=== PATIENT | male | born 1970 | race Caucasian/White ===

== ENCOUNTER 2017-08-03 13:13 | Inpatient (IN) ==
[2017-08-03] MEDS ORDERED: Levofloxacin 500 MG/100 ML 500 MG/100 ML BAG IVPB ONE (13:35)
[2017-08-03] MEDS ORDERED: Aminoglycoside Consult 1 EACH MC ONE (14:59)
[2017-08-03] MEDS ORDERED: Naloxone 0.4 MG/ML INJ IVP PRN (15:03)
--- NOTE | 2017-08-03 15:10 | Internal Med History&Physical ---
Date of Encounter: 08/03/17 Time of Encounter: 15:08 Internal Medicine - H&P: HPI Chief complaint: SOB/Cough, LE swelling History of present illness: Mr. Eitenne is a 46 year old male who was previously healthy who presents with 3 day history of swelling in the legs associated with cough, shortness of breath on exertion. Found to have multifocal pneumonia with associated pleural effusion. Also noted bilateral lower extremity edema +1. He has been previously healthy and does not really see a physician. He developed swelling on the lower extremity for the last 3 days. Of note he had shortness of breath and cough syndrome and visited urgent care on to July and was given antibiotics such as Z-Pedro and subsequently Cipro. His shortness of breath is progressive to a few 100 yards. Feels winded. Associated with cough with scant sputum. He reports that all these symptoms started since several weeks now. Denies overt fevers or chills EKG personally reviewed with rate 138, sinus tachycardia, PVCs CT/CT angio chest IMPRESSION: 1. No CT evidence of a pulmonary embolism. 2. Bilateral pleural effusions, right greater than left, with mild interstitial pulmonary edema. 3. Multifocal, consolidative, nodular, ground-glass opacities throughout both lungs most likely reflect multifocal pneumonia. 4. Subcarinal and bilateral hilar lymphadenopathy, most likely benign and reactive in etiology given the patient's underlying lung findings. RECOMMENDATIONS: Given the patient's multifocal airspace opacities and lymphadenopathy, suggest appropriate clinical treatment and short-term chest CT follow-up in 6-8 weeks, to ensure resolution of both the multifocal lung opacities and lymphadenopathy, as underlying malignancy cannot be entirely excluded. Past Med Surg Social Fam HX - Past Medical History Medical history: CHF, hypertension, kidney stones Psychiatric history: no psych history - Past Surgical History Surgical History: no surgical history - Social History Smoking Status: Never smoker Alcohol use: occasionally Drug use: none Internal Medicine - H&P: Meds Furosemide [Lasix] 40 mg PO DAILY #5 tablet 08/03/17 [Rx] levoFLOXacin [Levaquin] 500 mg PO DAILY #7 tablet 08/03/17 [Rx] 3 Allergy/AdvReac Type Severity Reaction Status Date / Time No Known Allergies Allergy Verified 08/03/17 08:44 All Systems PM: A 10-system review of systems was performed and is negative for pertinent findings except as documented above in the HPI. Review of systems: ROS 14 point review of systems reviewed as best as possible given presentation. Pertinent positive or negative as per HPI or otherwise reviewed as negative - Constitutional Vitals: Temp Pulse Resp BP Pulse Ox 98.4 F 118 18 136/108 94 08/03/17 13:53 08/03/17 14:54 08/03/17 14:54 08/03/17 14:54 08/03/17 14:54 Exam: General - AAO x 3 Psych - Appropriate affect/speech. No agitation Eyes - MARIANELA. Eye lids intact. No scleral icterus Neuro - No gross peripheral or central neuro deficits on inspection Heart - Sinus. RRR. S1 and S2 present. No added HS/murmurs appreciated. No elevated JVD appreciated. Lung - Adequate air entry b/l, bibasal dullness associated with bibasal crackles. No wheezes appreciated GI - Soft, non-tender. No hepatosplenomegaly/ascites. BS+ - No CVA/suprapubic tenderness or palpable bladder distension Skin - Intact. No rash/petechiae/ecchymosis. S1 bilateral lower extremity edema MSK - Joints with normal ROM. No joint swellings - Assessment and plan (1) Multifocal pneumonia Current Visit: No Status: Acute Assessment and plan: IV cefepime. IV vanco, pharmacy to dose, monitor level send serologies could be post-viral ? Denies IVDU or prior immunocompromised state (2) Pleural effusion Current Visit: Yes Status: Acute Assessment and plan: likely related to PNA IV lasix trial treat infection (3) Leg swelling Current Visit: Yes Status: Acute Assessment and plan: check TTE card consulted by ED could be post viral associated ?? Await TTE Lasix for now IV - Time Spent With Patient Total time spent is greater than 50% in coordination of care (as documented) at patient's floor/unit and/or counseling patient:
--- NOTE | 2017-08-03 15:47 | Emergency Department Note ---
Disposition Clinical Impression: Multifocal pneumonia, Dilated cardiomyopathy Disposition: Admitted As Inpatient Condition: Fair Time of Disposition: 15:47 General Adult HPI - General Chief complaint: ED Shortness of Breath/Dyspnea Stated complaint: Left AMA Earlier,Pneumonia, was being admitted Time Seen by Provider: 08/03/17 13:22 Source: patient Limitations: no limitations Nursing Notes Reviewed: Yes Vital Signs Reviewed: Yes - History of Present Illness HPI Narrative: Patient returned from leaving AMA this morning. Please see my note for full history from this morning. Patient has not yet filled antibiotic. Pain Scale: 0 - Related Data Previous Rx's Medication Instructions Recorded Furosemide [Lasix] 40 mg PO DAILY #5 tablet 08/03/17 levoFLOXacin [Levaquin] 500 mg PO DAILY #7 tablet 08/03/17 Allergies Allergy/AdvReac Type Severity Reaction Status Date / Time No Known Allergies Allergy Verified 08/03/17 08:44 All systems ED: reviewed and negative except as stated. Constitutional: Denies: fever Cardiovascular: Reports: chest pain Respiratory: Reports: dyspnea Gastrointestinal: Denies: abdominal pain Past Medical History - Past Medical History Attestation: Yes The following information was validated with the patient. Source: patient Medical history: Reports: CHF, hypertension, kidney stones Surgical history: Reports: no surgical history Psychiatric history: Reports: no psych history - Social History Smoking Status: Never smoker Alcohol use: Reports: occasionally Drug use: Reports: none Physical Exam - General Limitations: no limitations General appearance: alert, in no apparent distress - Head Head exam: atraumatic - Eye Eye exam: Present: normal appearance - Chest Chest inspection: Present: normal inspection - Respiratory Respiratory exam: Present: normal lung sounds bilaterally - Cardiovascular Cardiovascular exam: Present: regular rate, normal rhythm - Neurological Exam Neurological exam: Present: alert, oriented X3 - Psychiatric Psychiatric exam: Present: normal affect - Skin Skin exam: Present: warm, dry Course Course Narrative: Patient returns for admission. No further symptoms. Admitted to medicine. - Consultations Consultation #1: Celina accepts Time: 15:46 Vital Signs Pulse Rate 125 08/03/17 13:16 Respiratory Rate 20 08/03/17 13:16 Blood Pressure 148/101 08/03/17 13:16 Temperature 98.4 F 08/03/17 13:53 Pulse Rate 118 08/03/17 14:54 Respiratory Rate 18 08/03/17 14:54 Blood Pressure 136/108 08/03/17 14:54 O2 Sat by Pulse Oximetry 94 08/03/17 14:54 Oxygen Delivery Oxygen Delivery Room Air Medical Decision Making - Lab Data Lab results reviewed: Yes I reviewed the patient's lab results. Lab results narrative: From this morning
[2017-08-03] MEDS ORDERED: Ipratropium/Albuterol Neb 3 ML IH SCH (17:00)
[2017-08-03] MEDS: Cefepime HCl 2,000 MG in Water for inj. (sterile) 20 ML 20 ML IVP SCH (18:19)
[2017-08-04] MEDS: Levalbuterol Neb 1.25 MG/3 ML IH SCH ×4 (03:21→21:49)
[2017-08-04 05:58] LABS: Basophils # 0.1 K/mcL (0.0-0.2); Basophils % 0.8 %; Eosinophils # 0.1 K/mcL (0.0-0.6); Hematocrit 47.1 % (37.5-50.1); Hemoglobin 15.7 g/dL (12.9-16.9); Immature Granulocytes % 0.8 % (0-4); Lymphocytes # 0.9 K/mcL (0.6-4.6); Lymphocytes % 11.6 %; Mean Corpuscular HGB Conc 33.3 g/dL (31.6-35.5); Mean Corpuscular Hemoglobin 32.9 pg (28.0-33.3); Mean Corpuscular Volume 98.7 fL (83.0-100.0); Mean Platelet Volume 10.8 fL (9.4-12.4); Monocytes # 0.6 K/mcL (0.0-1.3); Monocytes % 7.8 %; Neutrophils # 6.3 K/mcL (1.6-8.9); Platelet Count 198 K/mcL (140-400); Red Blood Count 4.77 M/mcL (4.19-5.50); Red Cell Distribution Width 13.4 % (11.5-14.5)
[2017-08-04 06:07] LABS: BUN/Creatinine Ratio 13 (6-26); Blood Urea Nitrogen 12 mg/dL (6-20); Calcium 9.2 mg/dL (8.6-10.3); Carbon Dioxide 23 mEq/L (23-29); Chloride 99 mEq/L (98-107); Glucose 117 mg/dL (70-105); Osmolality,Calculated 275 (280-300); Potassium 3.8 mEq/L (3.5-5.1); Sodium 132 mEq/L (136-145); eGFR For African Americans > 60 (> 60); eGFR For Non-African Americans > 60 (> 60)
[2017-08-04] MEDS: Cefepime HCl 2,000 MG in Water for inj. (sterile) 20 ML 20 ML IVP SCH ×2 (06:57→17:05)
[2017-08-04] MEDS: *HR* Enoxaparin 40 MG/0.4 ML SYRINGE SQ SCH (06:57)
[2017-08-04] MEDS ORDERED: Furosemide 40 MG/4 ML VIAL IVP SCH (09:00)
--- NOTE | 2017-08-04 09:14 | Cardiology Consult Note ---
Date of Encounter: 08/04/17 Time of Encounter: 09:14 Assessment and Plan (1) Leg swelling Current Visit: Yes Status: Acute Bilateral 2+ pitting edema in lower extremities. Concern for CHF at this time due to elevated BNP. Patient has no known cardiac history. Echo pending. Discussion w patient/family: The assessment and plan as outlined above was discussed with the patient and/or family members who expressed understanding and agreement. All questions were answered. Thank you for involving us in the care of your patient. Please call with any questions. History of Present Illness Consult date: 08/04/17 Consult reason: Fluid Overload History of present illness: Mr. Etienne is a 46 year old male with history of hypertension admitted to the hospital for multifocal pneumonia. Patient also found to have fluid overload and bilateral lower extremity edema. Patient states he has never had edema before. Denies chest pain, pressure, or palpitations. Denies any cardiac history. Patient has no complaints or concerns at this time. Past Med Surg Social Fam HX - Past Medical History Attestation: Yes The following information was validated with the patient. Medical history: CHF, hypertension, kidney stones Psychiatric history: no psych history - Past Surgical History Surgical History: no surgical history - Social History Smoking Status: Never smoker Alcohol use: occasionally Drug use: none - Family History Mother Hx Family Cardiac Disorders: Yes (Hypertension) Father Hx Family Cardiac Disorders: Yes (Hypertension) Medications and Allergies 3 Allergy/AdvReac Type Severity Reaction Status Date / Time No Known Allergies Allergy Verified 08/03/17 08:44 All Systems Review: The remainder of the systems were reviewed and are negative - Constitutional Constitutional: no frequent falls, no headache(s) - EENT Eyes: no blurred vision, no loss of vision - Cardiovascular Cardiovascular: as per HPI - Respiratory Respiratory: cough, no hemoptysis - Gastrointestinal Gastrointestinal: no abdominal pain, no diarrhea, no nausea - Musculoskeletal Musculoskeletal: no abnormal gait, no muscle weakness - Integumentary Integumentary: no rash - Neurological Neurological: no abnormal speech, no focal weakness Physical Examination Vital Signs, Last 4 Hours Temp Pulse Resp BP Pulse Ox 08/04/17 07:13 97.5 F L 123 16 135/101 91 General: Conversant, No Apparent Distress HEENT: Atraumatic, Normocephaly, Mucus Membranes Moist Neck: No JVD, Normal carotid pulses Cardiac: Reg Rate and Rhythm, Normal S1 and S2, No Murmur Lungs: Other (Coarse breath sounds throughout) Neuro: Alert and responsive, No focal deficits noted Abdomen: Soft, Non-Tender Skin: No rashes noted on visualized skin Musculoskeletal: No Chest Wall Tenderness Extremities: Normal Pulses, Other (2+ pitting edema bilateral lower extremities) Results 08/04/17 05:34 08/04/17 05:34 Lab Results 08/04/17 08/04/17 08/04/17 05:34 05:34 05:34 WBC 8.0 Hgb 15.7 Hct 47.1 Plt Count 198 Sodium 132 L Potassium 3.8 Chloride 99 Carbon Dioxide 23 BUN 12 Creatinine 0.93 Glucose 117 H Calcium 9.2 B-Natriuretic Peptide 3443 H Consult Discharge Plan - Plan Referrals: Mat Mueller DO [Primary Care Provider] -
--- NOTE | 2017-08-04 13:39 | Internal Med Progress Note ---
Date of Encounter: 08/04/17 Time of Encounter: 11:00 - Assessment and plan (1) Multifocal pneumonia Current Visit: Yes Status: Acute Assessment and plan: Mostly bacterial Cont empirical abx Cefepime + Levaquin no need of Vanco.. low risk for MRSA will check sputum cx, Legionella, strep PNA and Resp viral panel (2) Pleural effusion Current Visit: Yes Status: Acute Assessment and plan: likely related to PNA Also concerned for CHF will f/u on 2 D Echo Held Lasix for now since pt became more sinus tachy / intra vascular volume depletion (3) Leg swelling Current Visit: Yes Status: Acute Assessment and plan: check TTE Improving (4) CHF exacerbation Current Visit: Yes Status: Acute Assessment and plan: Possible systolic CHF exacerbation Severely elevated BNP and significnat pleural effusion as well as b/l LE edema put him on high risk for CHF will f/u on 2 D Echo started on Metoprolol Held Lasix for now Qualifiers: Heart failure type: unspecified Qualified Code(s): I50.9 - Heart failure, unspecified (5) Sinus tachycardia Current Visit: Yes Status: Acute Assessment and plan: Mostly due to Pneumonia cont empirical abx held IV hydration for now due to CHF Switched to Xopenox neb - Time Spent With Patient Total time spent is greater than 50% in coordination of care (as documented) at patient's floor/unit and/or counseling patient: - Subjective Interval history: Mr. Etienne is a 46 year old male who was previously healthy who presents with 3 day history of swelling in the legs associated with cough, shortness of breath on exertion. Found to have multifocal pneumonia with associated pleural effusion. Also noted bilateral lower extremity edema +1. Pt was admitted here and started him on empirical abx Cefepime and Levaquin. He was also started on IV lasix. Pt stated his leg swelling better today. Denied any CP. Does c/o mild to moderate SOB / VELEZ. Still has some cough with expectoration. - Constitutional Vitals: Temp Pulse Resp BP Pulse Ox 98.4 F 127 16 139/92 94 08/04/17 10:47 08/04/17 10:47 08/04/17 10:47 08/04/17 10:47 08/04/17 10:47 General appearance: Present: A&O X 3, no acute distress, answers questions appropriately - Head Head exam: Present: atraumatic, normal inspection - Neck Neck exam general surgery: Present: supple - Respiratory Respiratory exam: Present: decreased breath sounds, wheezes (mild). Absent: rales, respiratory distress, rhonchi - Cardiovascular Cardiovascular exam: Present: +S1, +S2, tachycardia. Absent: systolic murmur - GI/Abdominal GI/Abdominal exam: Present: normal bowel sounds, soft. Absent: rebound, rigid, tenderness - Extremities Exam Extremities exam: Present: pedal edema. Absent: calf tenderness, tenderness - Back Exam Back exam: Absent: CVA tenderness (L), CVA tenderness (R) - Neurological Exam Neurological exam: Present: alert, oriented X3 - Psychiatric Psychiatric exam: Present: normal affect, normal mood Internal Medicine: Result - Labs CBC & Chem 7: 08/04/17 05:34 08/04/17 05:34 Labs: Short CBC 08/04/17 Range/Units 05:34 WBC 8.0 (4.3-11.1) K/mcL Hgb 15.7 (12.9-16.9) g/dL Hct 47.1 (37.5-50.1) % Plt Count 198 (140-400) K/mcL Neutrophils # 6.3 (1.6-8.9) K/mcL BMP 08/04/17 05:34 Sodium 132 L Potassium 3.8 Chloride 99 Carbon Dioxide 23 BUN 12 Creatinine 0.93 Glucose 117 H Calcium 9.2 Consult Discharge Plan - Plan Referrals: Mat Mueller DO [Primary Care Provider] -
--- NOTE | 2017-08-04 15:31 | Event Note ---
Date of Encounter: 08/04/17 Time of Encounter: 15:29 TTE demonstrates severe reduction in LV function, LVEF 15-20%. Recommend continue diuresis for today. We will make patient nothing by mouth for possible cardiac catheterization tomorrow.
[2017-08-04] MEDS ORDERED: Metoprolol XL (24 HR) Succ 25 MG TAB.ER.24H PO SCH (16:00)
[2017-08-04] MEDS: Furosemide 40 MG/4 ML VIAL IVP SCH (17:04)
[2017-08-04] MEDS: Aspirin 81 MG TAB.CHEW PO SCH (17:05)
[2017-08-05] MEDS: Cefepime HCl 2,000 MG in Water for inj. (sterile) 20 ML 20 ML IVP SCH ×3 (00:59→17:15)
[2017-08-05 03:41] LABS: Basophils # 0.1 K/mcL (0.0-0.2); Basophils % 0.8 %; Eosinophils # 0.1 K/mcL (0.0-0.6); Eosinophils % 1.3 %; Hematocrit 43.1 % (37.5-50.1); Hemoglobin 14.8 g/dL (12.9-16.9); Immature Granulocytes % 0.6 % (0-4); Lymphocytes # 0.6 K/mcL (0.6-4.6); Mean Corpuscular HGB Conc 34.3 g/dL (31.6-35.5); Mean Corpuscular Hemoglobin 33.9 pg (28.0-33.3); Mean Corpuscular Volume 98.6 fL (83.0-100.0); Monocytes # 0.5 K/mcL (0.0-1.3); Monocytes % 7.9 %; Platelet Count 155 K/mcL (140-400); Red Blood Count 4.37 M/mcL (4.19-5.50); Red Cell Distribution Width 13.4 % (11.5-14.5); Segmented Neutrophils % 79.4 %
[2017-08-05] MEDS: Levalbuterol Neb 1.25 MG/3 ML IH SCH ×2 (04:04→11:05)
[2017-08-05 04:07] LABS: BUN/Creatinine Ratio 14 (6-26); Blood Urea Nitrogen 14 mg/dL (6-20); Carbon Dioxide 28 mEq/L (23-29); Chloride 101 mEq/L (98-107); Glucose 104 mg/dL (70-105); Magnesium 1.5 mg/dL (1.6-2.6); Osmolality,Calculated 287 (280-300); Potassium 3.2 mEq/L (3.5-5.1); Sodium 138 mEq/L (136-145); eGFR For African Americans > 60 (> 60); eGFR For Non-African Americans > 60 (> 60)
[2017-08-05] MEDS: *HR* Enoxaparin 40 MG/0.4 ML SYRINGE SQ SCH (06:24)
[2017-08-05] MEDS: Levofloxacin 500 MG/100 ML 500 MG/100 ML BAG IVPB SCH (09:21)
[2017-08-05] MEDS: Furosemide 40 MG/4 ML VIAL IVP SCH (09:22)
[2017-08-05] MEDS: Metoprolol XL (24 HR) Succ 25 MG TAB.ER.24H PO SCH (09:22)
--- NOTE | 2017-08-05 09:22 | Cardiology Progress Note ---
<RonenLittle L - Last Filed: 08/05/17 09:23> Date of Encounter: 08/05/17 Time of Encounter: 09:21 Assessment and Plan (1) CHF exacerbation Current Visit: Yes Status: Acute New documented systolic dysfunction on echo with EF 15-20%. Patient agreeable to cath today. Swelling significantly improved. Qualifiers: Heart failure type: unspecified Qualified Code(s): I50.9 - Heart failure, unspecified Discussion w patient/family: The assessment and plan as outlined above was discussed with the patient and/or family members who expressed understanding and agreement. All questions were answered. Thank you for involving us in the care of your patient. Please call with any questions. Subjective Interval history: Patient states he still has a dry cough and feels his heart racing. Denies chest pain or pressure. Lower extremity swelling significantly improved. Patient 's echo showed EF of 15-20%. Patient has no known cardiac history. Patient spoken to yesterday and is agreeable to cath today. Objective Vital Signs, Last 4 Hours Temp Pulse Resp BP Pulse Ox 08/05/17 07:49 99.0 F 127 17 126/90 92 08/05/17 05:31 98.9 F 124 18 132/93 91 General: Conversant, No Apparent Distress HEENT: Atraumatic, Normocephaly, Mucus Membranes Moist Neck: No JVD, Normal carotid pulses Cardiac: Normal S1 and S2, No Murmur, Other (Tachycardic, normal rhythm) Lungs: Other (coarse breath sounds throughout) Neuro: Alert and responsive, No focal deficits noted Abdomen: Soft, Non-Tender Skin: No rashes noted on visualized skin Musculoskeletal: No Chest Wall Tenderness Extremities: Normal Pulses, Other (Mild bilateral lower extremity edema noted) Results 08/05/17 03:30 08/05/17 03:30 Lab Results 08/05/17 08/05/17 03:30 03:30 WBC 6.3 Hgb 14.8 Hct 43.1 Plt Count 155 Sodium 138 Potassium 3.2 L Chloride 101 Carbon Dioxide 28 BUN 14 Creatinine 0.98 Glucose 104 Calcium 9.0 Magnesium 1.5 L Consult Discharge Plan - Plan Referrals: Mat Mueller DO [Primary Care Provider] - (web request sent on 08/05/16) <Clementine Hernadez - Last Filed: 08/05/17 12:50> Date of Encounter: 08/05/17 Assessment and Plan Discussion w patient/family: I examined this patient and my medical decision-making was reviewed with the Resident Physician. I agree with the documented findings, disposition and treatment plan. Mr. Etienne was independently seen and examined. LE edema improved. No new concerning symptoms or exam findings. Newly discovered severe bi-ventricular heart failure in setting of illness. Plan for [facility] today. R/B/A reviewed with patient. Renal function normal. No contraindication to anticoagulation. Patient family at bedside. All questions answered. Objective Vital Signs, Last 4 Hours Temp Pulse Resp BP Pulse Ox 08/05/17 11:39 98.4 F 129 17 117/83 98 Results 08/05/17 03:30 08/05/17 03:30 Lab Results 08/05/17 08/05/17 08/05/17 03:30 03:30 10:23 WBC 6.3 Hgb 14.8 Hct 43.1 Plt Count 155 INR 1.3 Sodium 138 Potassium 3.2 L Chloride 101 Carbon Dioxide 28 BUN 14 Creatinine 0.98 Glucose 104 Calcium 9.0 Magnesium 1.5 L
[2017-08-05] MEDS: Aspirin 81 MG TAB.CHEW PO SCH (09:23)
[2017-08-05 10:38] LABS: INR 1.3; Prothrombin Time 14.4 Seconds (9.4-12.1)
[2017-08-05] MEDS ORDERED: Nitroglycerin 1,000 MCG/10 ML VIAL IV ONE (13:07)
[2017-08-05] MEDS ORDERED: 0.9 % Sodium Chloride 1,000 ML ONE ×2 (13:07→13:29)
[2017-08-05] MEDS ORDERED: Heparin 1,000 UNITS/500 mL 500 ML ONE (13:07)
[2017-08-05] MEDS ORDERED: *HR* Heparin 10,000 UNIT/10 ML VIAL ONE (13:07)
[2017-08-05] MEDS ORDERED: ISOVUE-370 200 ML INFUS..BTL IV ONE (13:07)
[2017-08-05] MEDS ORDERED: *HR* Midazolam HCl 5 MG/5 ML VIAL IVP ONE (13:28)
--- NOTE | 2017-08-05 13:37 | Internal Med Progress Note ---
Date of Encounter: 08/05/17 Time of Encounter: 10:35 - Assessment and plan (1) CHF exacerbation Current Visit: Yes Status: Acute Assessment and plan: His 2 D Echo showed LVEF 15-20%, Severe LV dysfunction Could be non ischemic cardiomyopathy with his underline heavy alcoholic abuse history Scheduled for [facility] today Cont IV lasix cont close monitoring electrolytes and cont replacing them cont BB.. If BP allows will add low dose ACEI too Qualifiers: Heart failure type: unspecified Qualified Code(s): I50.9 - Heart failure, unspecified (2) Multifocal pneumonia Current Visit: Yes Status: Acute Assessment and plan: Mostly bacterial Cont empirical abx Cefepime + Levaquin Improving (3) Pleural effusion Current Visit: Yes Status: Acute Assessment and plan: Mostly due to Sysolic CHF Cont Lasix (4) Leg swelling Current Visit: Yes Status: Acute Assessment and plan: Improving (5) Sinus tachycardia Current Visit: Yes Status: Acute Assessment and plan: Mostly due to Pneumonia cont empirical abx Cont Xopenox neb inc Metoprolol to 50mg - Time Spent With Patient Total time spent is greater than 50% in coordination of care (as documented) at patient's floor/unit and/or counseling patient: - Subjective Interval history: Mr. Etienne is a 46 year old male who was previously healthy who presents with 3 day history of swelling in the legs associated with cough, shortness of breath on exertion. Found to have multifocal pneumonia with associated pleural effusion. Also noted bilateral lower extremity edema +1. Pt was admitted here and started him on empirical abx Cefepime and Levaquin. He was also started on IV lasix. Pt stated his leg swelling better today. Denied any CP / SOB. Overall feels better. He did mention heavy alcoholic dependence history quit 3-4 months ago. - Constitutional Vitals: Temp Pulse Resp BP Pulse Ox 98.4 F 129 17 117/83 98 08/05/17 11:39 08/05/17 11:39 08/05/17 11:39 08/05/17 11:39 08/05/17 11:39 General appearance: Present: A&O X 3, no acute distress, answers questions appropriately - Head Head exam: Present: atraumatic, normal inspection - Neck Neck exam general surgery: Present: supple - Respiratory Respiratory exam: Present: decreased breath sounds. Absent: rales, respiratory distress, rhonchi, wheezes - Cardiovascular Cardiovascular exam: Present: +S1, +S2, tachycardia. Absent: systolic murmur - GI/Abdominal GI/Abdominal exam: Present: normal bowel sounds, soft. Absent: rebound, rigid, tenderness - Extremities Exam Extremities exam: Present: pedal edema. Absent: calf tenderness, tenderness - Back Exam Back exam: Absent: CVA tenderness (L), CVA tenderness (R) - Neurological Exam Neurological exam: Present: alert, oriented X3 - Psychiatric Psychiatric exam: Present: normal affect, normal mood Internal Medicine: Result - Labs CBC & Chem 7: 08/05/17 03:30 08/05/17 03:30 Labs: Short CBC 08/05/17 Range/Units 03:30 WBC 6.3 (4.3-11.1) K/mcL Hgb 14.8 (12.9-16.9) g/dL Hct 43.1 (37.5-50.1) % Plt Count 155 (140-400) K/mcL Neutrophils # 5.0 (1.6-8.9) K/mcL BMP 08/05/17 03:30 Sodium 138 Potassium 3.2 L Chloride 101 Carbon Dioxide 28 BUN 14 Creatinine 0.98 Glucose 104 Calcium 9.0 - ABG Interpretation ABG results: PT/INR, D-dimer PT 14.4 Seconds (9.4-12.1) H 08/05/17 10:23 - Impressions Impressions Echocardiogram 08/04/17 15:06 Impressions: Sinus tachycardia. LVEF 15-20%. Severe global LV systolic dysfunction. Indeterminate diastolic function. RV is normal in size with severe reduction in function. Mild mitral regurgitation. Mild tricuspid regurgitation. Mild pulmonic regurgitation. Mild pulmonary hypertension. No prior echo for comparison. Findings communicated to ordering provider by [employer]. Left Ventricular Wall Motion: Rest Echo Findings The apex, apical inferior, mid inferior, basal inferior, apical anterior, mid anterior, basal anterior, apical septal, mid inferior septal, basal inferior septal, apical lateral, mid anterior lateral, basal anterior lateral, mid anterior septal, mid inferior lateral, basal anterior septal and basal inferior lateral roman were hypokinetic. Findings: Study Quality * Technically adequate exam. ECG Findings * Sinus tachycardia. Left Ventricle * LVEF 15-20%. * Normal LV chamber size and wall thickness. * Indeterminate diastolic function. Right Ventricle * RV is normal in size with severe reduction in function. Left Atrium * Mildly dilated left atrium. Right Atrium * Normal right atrial size. Mitral Valve * Normal mitral valve structure. * No mitral stenosis. * Mild mitral regurgitation. Aortic Valve * No aortic regurgitation. * Trileaflet aortic valve. * No aortic stenosis. Tricuspid Valve * Normal tricuspid valve structure. * Mild tricuspid regurgitation. * Estimated RA pressure is 20 mmHg. * Estimated RVSP is 44 mmHg. * Mild pulmonary hypertension. Pulmonic Valve * Pulmonic valve is not well visualized. * No pulmonic stenosis. * Mild pulmonic regurgitation. Pulmonary Artery * Pulmonary artery not well visualized. Aorta * Normally sized aortic root. Pericardium * There is no pericardial effusion present. Interatrial Septum * No evidence of PFO by color Doppler. IVC * The IVC is dilated. * < 50% respiratory change. Consult Discharge Plan - Plan Referrals: Mat Mueller DO [Primary Care Provider] - (web request sent on 08/05/16)
--- NOTE | 2017-08-05 13:44 | Pre-Sedation Evaluation ---
Pre-sedation evaluation - Pre-sedation checklist Date of procedure: 08/05/17 Procedure: cardiac cath Recent Vitals: Last Vital Signs Temp 98.4 F 08/05/17 11:39 Pulse 129 08/05/17 11:39 Resp 17 08/05/17 11:39 BP 117/83 08/05/17 11:39 Pulse Ox 98 08/05/17 11:39 H&P (including ROS) documented in medical record: Yes Previous reaction to sedatives/anesthetics: No Dietary Status: NPO after Midnight Airway Assessment: Patient can open mouth completely, TMJ function normal Dentition: No loose teeth or bridges Possible difficult airway: No If Yes;: History of difficult intubation ASA Classification *see protocol: CLASS III-Severe systemic disease Plan of Care: Pt appropriate candidate for procedure/moderate/conscious sedation , Risks/benefits of procedure/sedation discussed w/ patient/family, If not NPO; Risk of intake outweiged by necessity to perform procedure
[2017-08-05] MEDS ORDERED: Levofloxacin 500 MG/100 ML 500 MG/100 ML BAG IVPB SCH (14:00)
[2017-08-05] MEDS ORDERED: *HR* Bivalirudin 250 MG VIAL IVC ONE (14:02)
[2017-08-05] MEDS ORDERED: Adenosine 90 MG/30 ML MLS IV ONE (14:59)
--- NOTE | 2017-08-05 17:20 | Invasive Diagnostic Lab Proc ---
Name: Osito Etienne Date of Study: 08/05/2017 Date: 1970 Ht: 68.1in Medical Record#: [id number] Age: 46 Wt: 169.09lb Gender: Male BSA: 1.91 Order #: [id number] BMI: 25.63 Physicians Procedure Physician: Jez Nelson DO Referring MD: Anoop Mueller DO Referring MD: Staff Name Position Time In Delroy Etienne RN Search Marketing Specialist 01:29 PM Samia Pascual RT (R) Scrub 01:29 PM Herbie Dickerson RN Monitor 01:29 PM Liliana Funez RN Monitor 01:29 PM Indications Indication Cardiomyopathy Procedures Performed Procedure L HRT ARTERY/VENTRICLE ANGIO IV Doppler BLD Flow 1st Vessel Pre-Procedure Checklist Informed consent is complete signed and on chart. H&P is on chart. ID band is on and ID verified with patient. Patient NPO for procedure The procedure was described for the patient and questions were answered. Blood Pressure: 126/90 ECG is on chart. Rhythm: NSR Plan of Care Patient will tolerate the procedure without complications. Adequate level of comfort will be maintained. Hemodynamics will remain stable Patient will recover from procedure without complications. Respiratory function will be maintained. Cardiac rhythm will remain stable. Patient temperature will be maintained. Patient and/or family have verbalized understanding of the procedure. Patient Education Intravenous Access Time IV Size Location DC'd Fluid/Drip Rate Units RN 01:00 PM 20g 1 /" Patent On Arrival Lt Antecubital 0.9NaCl 25 ml/hr Delroy Etienne RN Allergies No Known Allergies Vital Signs Time BP (mmHg) HR (bpm) O2 Sat. RR (bpm) LOC 126 / 90 127 99 % 17 5 = Fully awake and oriented or at pre-proc level 01:34 PM / % 5 = Fully awake and oriented or at pre-proc level 01:34 PM / % 4 = Oriented but drowsy 01:49 PM / % 4 = Oriented but drowsy 01:35 PM 118 / 90 118 % 01:40 PM 114 / 81 120 98 % 01:45 PM 117 / 85 119 99 % 01:50 PM 111 / 83 117 98 % 01:55 PM 112 / 76 117 96 % 02:00 PM 120 / 72 106 100 % 02:05 PM 112 / 82 114 95 % 02:10 PM 118 / 83 110 99 % 02:15 PM 117 / 88 112 98 % 02:20 PM 112 / 83 113 93 % 02:25 PM 112 / 83 116 93 % 02:30 PM 121 / 82 115 98 % 02:35 PM 118 / 83 116 96 % 02:40 PM 113 / 81 118 93 % 02:45 PM 117 / 79 115 96 % 02:50 PM 118 / 81 118 92 % 03:00 PM 108 / 83 118 94 % 18 5 = Fully awake and oriented or at pre-proc level 03:15 PM 98 / 67 120 94 % 18 5 = Fully awake and oriented or at pre-proc level 03:49 PM 110 / 86 115 93 % 18 5 = Fully awake and oriented or at pre-proc level 04:03 PM 90 / 115 94 % 18 5 = Fully awake and oriented or at pre-proc level 04:18 PM 103 / 70 117 95 % 18 5 = Fully awake and oriented or at pre-proc level 04:34 PM 101 / 69 117 98 % 18 5 = Fully awake and oriented or at pre-proc level 04:45 PM 99 / 69 117 98 % 18 5 = Fully awake and oriented or at pre-proc level 05:00 PM 103 / 72 117 98 % 18 5 = Fully awake and oriented or at pre-proc level Procedural Medications Time Medication Dose Units Method Given By 01:34 PM Oxygen 2 L/min nasal cannula Delroy Etienne RN 01:44 PM Versed 2 mg Intravenous Delroy Etienne RN 01:47 PM Versed 1 mg Intravenous Delroy Etienne RN 01:51 PM Lidocaine 2% 10 ml Subcutaneous Jez Nelson DO 02:04 PM Angiomax 0.75mg/kg bolus: 11 ml Intravenous Delroy Etienne RN 02:05 PM Angiomax 1.75mg/kg/hr: 26 ml/hr Intravenous Delroy Etienne RN 02:25 PM Adenosine 693 ml/hr Intravenous Delroy Etienne RN ASA Classification: CLASS III- Severe systemic disease (i.e. prior AMI, diabetes with vascular complications, morbid obesity) Alexx Score Preprocedure Postprocedure Activity 2- Moves 4 extremities sustained head lift Activity 2- Moves 4 extremities sustained head lift Circulation 2- SBP +/= 20 points of pre-anesthetic level Circulation 2- SBP +/= 20 points of pre-anesthetic level Consciousness 2- Awake and alert oriented x 3 Consciousness 2- Awake and alert oriented x 3 O2 Saturation 2- Able to maintain O2 satruation of 92% on room air O2 Saturation 2- Able to maintain O2 satruation of 92% on room air Respiratory 2- Able to deep breathe and cough well Respiratory 2- Able to deep breathe and cough well Total Score 10 Total Score 10 Contrast Agent: Isovue Diagnostic Contrast: 110 ml Total Contrast: 110 ml Fluoro Dose: 976 mGy Procedure Log Time Note Enter By 01:06 PM CathStat 01:29 PM Pt arrived to dental laboratory technician apprentice 2 at 13:29 cedwards 01:29 PM Delroy Etienne RN Position: Search Marketing Specialist Time in: : cedwards 01:29 PM Samia Pascual RT (R) Position: Scrub Time in: : ced[place] 01:29 PM Herbie Dickerson RN Position: Monitor Time in: : ced[place] 01:31 PM Liliana Funez RN Position: Monitor Time in: : ced[place] 01:32 PM Patient charges- Angio tray pack, Navilyst 3mm J, Pulse Oximetry and ACIST tubing and transducer cedwards 01:32 PM Case Delayed No cedwards :33 PM Hair removed from procedure site in procedure lab using clippers. Bilateral groin prepped with Chloraprep by Samia Pascual (R), then patient was draped. Skin intact. cedwards 01:33 PM Physicalverto paged/called 13:33. cedwards 01:33 PM Physicalverto responded and notified patient is ready 13:33 cedwards 01:33 PM Physician arrived 13:33 cedwards 01:33 PM Aric and elroy completed cedwards 01:33 PM Sign in performed according to hospital policy. cedwards :33 PM Procedure start 13:33 cedwards :34 PM Time: 13:34 Oxygen on at 2 L/min per nasal cannula by Delroy Etienne RN cedwards 01:34 PM Vitals capture started with the following parameters, Patient=Adult, Interval=5 min, Initial Raunxpbj=200 mmHg, Deflation Rate=5 mmHg, Cuff placed on Right Arm 01:34 PM Time: 13:34 Patient comfortable and pain free: Yes cedwards :34 PM Time: 13:34LOC: 5 = Fully awake and oriented or at pre-proc level cedwards 01:35 PM XV=848 bpm, FNUG=445/90 mmhg, Comment=ST 01:36 PM Recorded ECG: UC=268 Condition=Condition 1 01:40 PM XG=961 bpm, DMUR=785/81 mmhg, SpO2=98.0 %, Comment=ST 01:44 PM Time: 13:44 Versed 2 mg Intravenous Given by Delroy Etienne RN cedwards 01:45 PM PE=899 bpm, ZGRW=189/85 mmhg, SpO2=99.0 %, Comment=ST 01:47 PM Pressure channel 2 zeroed. 01:47 PM Time: 13:47 Versed 1 mg Intravenous Given by Delroy Etienne RN cedwards 01:49 PM ASA Class CLASS III- Severe systemic disease (i.e. prior AMI, diabetes with vascular complications, morbid obesity) cedwards :49 PM Time: 13:34LOC: 4 = Oriented but drowsy cedwards :49 PM Time: 13:34 Patient comfortable and pain free: Yes cedwards 01:50 PM NW=732 bpm, MXJB=922/83 mmhg, SpO2=98.0 %, Comment=ST 01:51 PM Time out performed according to hospital policy ced:51 PM Time: 13:51 10 ml Lidocaine 2% to right groin Subcutaneous Given by Jez Nelson DO ced 01:53 PM Micro-Introducer Kit utilized for sheath placement cedwards 01:53 PM Access obtained by percutaneous puncture. 6Fr 10cm Terumo Wolcott sheath placed in right Femoral artery. [id number] cedwards 01:54 PM 0.035 145cm Navilyst 3mmJ wire [id number] cedwards 01:54 PM 6Fr FR 4 catheter inserted over the wire [facility] cedwards 01:55 PM Catheter selectively placed in left ventricle cedwards 01:55 PM JZ=904 bpm, KLPU=643/76 mmhg, SpO2=96.0 %, Comment=ST 01:55 PM Bolus angiogram of Left Ventricle complete, hand injection cedwards 01:55 PM Recorded Pressure: LV, HV=479, Condition=Condition 1 (Left Ventricle) LV 93/14/21 01:56 PM Recorded Pressure: LV, Ao, XA=748, Condition=Condition 1 (Left Ventricle) LV 91/10/17, (Aorta) Ao 92/71/80 01:56 PM RCA angiography performed in multiple views. cedwards 01:56 PM Recorded Pressure: Ao, NH=234, Condition=Condition 1 (Aorta) Ao 88/72/78 01:57 PM Catheter removed cedwards 01:57 PM 6Fr FL 4 catheter inserted over the wire [facility] cedwards 01:58 PM LCA angiography performed in multiple views. cedwards 01:58 PM Recorded Pressure: Ao, UH=965, Condition=Condition 1 (Aorta) Ao 95/72/81 02:00 PM TW=423 bpm, PGHB=439/72 mmhg, QyU9=314.0 %, Comment=ST 02:02 PM Catheter removed cedwards 02:02 PM Inflation device was opened. cedwards 02:04 PM 6Fr JL4 Cordis guide catheter was used to cannulate the PCI vessel successfully. reused? No cedwards 02:04 PM Time: 14:04 Angiomax 0.75mg/kg bolus: 11 ml Intravenous Given by Delroy Etienne RN cedwards 02:05 PM RL=956 bpm, WNSC=980/82 mmhg, SpO2=95.0 %, Comment=ST 02:05 PM Time: 14:05 Angiomax 1.75mg/kg/hr: 26 ml/hr Intravenous Given by Delroy Etienne RN cedwards 02:06 PM .014 ChoICE PT Extra Support 300cm guide wire across target lesion- successful. reused? No cedwards 02:07 PM Asist FFR Catheter advanced to target lesion. cedwards 02:10 PM LQ=253 bpm, ETBT=988/83 mmhg, SpO2=99.0 %, Comment=ST 02:11 PM Lesion found in Proximal RCA. Pre Stenosis: 30 Pre KIET Flow: cedwards 02:12 PM Lesion found in Mid LAD. Pre Stenosis: 50 Pre KIET Flow: 3: Complete and Brisk Flow/Perfusion cedwards 02:12 PM Lesion found in 1st Marginal. Pre Stenosis: 60 Pre KIET Flow: 3: Complete and Brisk Flow/Perfusion cedwards 02:13 PM Lesion found in Mid Circumflex. Pre Stenosis: 50 Pre KIET Flow: 3: Complete and Brisk Flow/Perfusion cedwards 02:15 PM PX=509 bpm, XUVB=795/88 mmhg, SpO2=98.0 %, Comment=ST 02:15 PM Flow Wire/Catheter removed intact cedwards 02:16 PM Guide wire removed intact. cedwards 02:17 PM Guide catheter removed intact. cedwards 02:17 PM 6Fr XB LAD 3.5 Cordis guide catheter was used to cannulate the PCI vessel successfully. reused? No cedwards 02:19 PM Choice PT guidewire reinserted cedwards 02:20 PM MZ=555 bpm, XKHG=847/83 mmhg, SpO2=93.0 %, Comment=ST 02:22 PM Ascist FFR reinserted cedwards 02:25 PM EC=064 bpm, PVKE=273/83 mmhg, SpO2=93.0 % 02:26 PM Time: 14:25 Adenosine 693 ml/hr administered Intravenous by Delroy Etienne RN cedwards 02:29 PM Adenosine stopped cedwards 02:29 PM FFR Measurement: 0.97, LAD cedwards 02:29 PM Flow Wire/Catheter removed intact cedwards 02:30 PM ON=857 bpm, LBJH=813/82 mmhg, SpO2=98.0 %, Comment=ST 02:30 PM Guide wire removed intact. cedwards 02:30 PM .014 ChoICE PT Extra Support 300cm guide wire across target lesion- successful. reused? No cedwards 02:35 PM DO=211 bpm, KQAP=893/83 mmhg, SpO2=96.0 %, Comment=ST 02:35 PM Ascist FFR catheter reinserted cedwards 02:35 PM Recorded Pressure: Ao, BS=169, Condition=Condition 1 (Aorta) Ao 104/86/94 02:36 PM .014 ChoICE PT Extra Support 300cm guide wire across target lesion- successful. reused? No cedwards 02:38 PM One Choice PT removed cedwards 02:38 PM .014 ChoICE PT Extra Support 300cm guide wire across target lesion- successful. reused? No cedwards 02:39 PM Time: 13:49LOC: 4 = Oriented but drowsy cedwards 02:39 PM Time: 13:49 Patient comfortable and pain free: Yes cedwards 02:40 PM MO=689 bpm, ZLTT=075/81 mmhg, SpO2=93.0 % 02:41 PM 2 wires advanced down LAD cedwards 02:44 PM Ascist Catheter, Guide Catheter and wires removed cedwards 02:45 PM US=213 bpm, TTDX=667/79 mmhg, SpO2=96.0 %, Comment=ST 02:46 PM Angiomax stopped cedwards 02:47 PM Procedure completed at 14:47 cedwards 02:48 PM Did you address KIET flow and Dominance? Yes cedwards 02:48 PM Sign out completed: Radiation Dose 976.44 mGy Fluoro Time: 16.5 Isovue 370 - 200ml contrast 110 ml given by Jez Nelson DO. Complications: NoneCardiac Rehab Consult needed: NoConfirmed administered medications: Yes cedwards 02:48 PM Isovue 370 - 200ml,1 Bottle(s) used. cedwards 02:48 PM Sheath left in place to be pulled on floor/holding areaV+Pad cedwards 02:49 PM Estimated Blood Loss: minimal cedwards 02:49 PM Post ECG Sinus Tachycardia cedwards 02:49 PM Post Blood Pressure 117/79 cedwards 02:49 PM 14:49 Post Pulses Bilateral DP & PT 2+ cedwards 02:50 PM Information taught Cardiac Cath cedwards 02:50 PM Education needs Procedure and Plan of Care cedwards 02:50 PM Learning barriers :None cedwards 02:50 PM Education Methods cedwards 02:50 PM RL=879 bpm, EJBM=134/81 mmhg, SpO2=92.0 %, Comment=ST 02:51 PM Education evaluation Able to repeat information cedwards 02:51 PM Site status No bleeding/hematoma - Rt Groin as reported by Samia Pascual RT (R) at 14:51 cedwards 02:51 PM Opsite applied cedwards 02:53 PM Report given to Eda GUZMAN Pt taken to Holding room Room #3. 14:51 cedwards 02:54 PM Plavix, Effient or Brilinta given No cedwards 02:54 PM Delay to floor Bed availability, awaiting sheath pull cedwards 02:54 PM Patient out of room: 14:54 cedwards 02:54 PM Family placed in consult room. cedwards 02:54 PM Complications: None cedwards 02:54 PM Fluoro Time: 16.5 cedwards 02:54 PM Isovue 370 - 200ml contrast [address] Nelson. cedwards 02:55 PM Radiation Dose 976.44 mGy cedwards 02:59 PM Right Coronary, Right Posterior Descending Arteries with Right Posterolateral and Acute Marginal branches with 30 % stenosis. If graft is supplying this area, 0 % stenosis cedwards 03:00 PM Mid/Distal Left Anterior Descending Coronary Artery and diagonal branches with 50% stenosis. If graft is supplying this area, 0 % stenosis cedwards 03:00 PM Circumflex, Obtuse Marginal, Left Posterior Descending, and Left Posterolateral Coronary Arteries with 60 % stenosis. If graft is supplying this area, 0 % stenosis cedwards 03:01 PM Coronary Dominance: right cedwards 03:[address] nelson at bedside to speak with patient and family mprater 04:45 PM Arterial sheath pulled using manual compression and V+ Pad for 15 minutes by Eda Regan RN mprater 05:00 PM Arterial sheath pulled, 2x2 closure device used and was Successful S/N. mprater 05:05 PM report called to Ksenia on 2A mprater 05:11 PM patient transported to 2A mprater Complications Complication None Hemodynamics Pressures Site Systolic/A Wave Diastolic/V Wave Mean LV 93 14 21 LV 91 10 17 AO 92 71 80 AO 88 72 78 AO 95 72 81 AO 104 86 94 Post Procedure Information Blood Pressure: 117/79 mmHg Rhythm: Sinus Tachycardia Post procedural instructions were given Site Checks Time Location Status Staff Sheath In? Note 02:51 PM Rt Groin No bleeding/hematoma Samia Pascual RT (R) 03:00 PM Rt Groin No bleeding/ No Hematoma Jenny Henriquez RN Yes 03:15 PM Rt Groin No bleeding/ No Hematoma Jenny Henriquez RN Yes 03:38 PM Rt Groin No bleeding/ No Hematoma Eda Regan RN Yes 03:51 PM Rt Groin No bleeding/ No Hematoma Eda Regan RN Yes 04:02 PM Rt Groin No bleeding/ No Hematoma Eda Regan RN Yes 04:17 PM Rt Groin No bleeding/ No Hematoma Eda Regan RN Yes 04:33 PM Rt Groin No bleeding/ No Hematoma Eda Regan RN Yes 04:45 PM Rt Groin No bleeding/ No Hematoma Eda Regan RN 05:00 PM Rt Groin No bleeding/ No Hematoma Eda Regan RN Pulses Time Site Pre-Procedure Post-Procedure Note 08/05/2017 1:04:00 PM Bilateral DP & PT & radials 2+ 2:49:00 PM Bilateral DP & PT 2+ 08/05/2017 3:15:00 PM Bilateral DP & PT 2+ 08/05/2017 3:38:00 PM Bilateral DP 2+ 08/05/2017 3:50:00 PM Bilateral DP 2+ 08/05/2017 4:03:00 PM Bilateral DP 2+ 08/05/2017 4:17:00 PM Bilateral DP 2+ 08/05/2017 4:33:00 PM Bilateral DP 2+ 08/05/2017 5:00:00 PM Bilateral DP & PT 2+ Updated by Jenny Henriquez RN on 08/05/2017 5:12:21 PM Jenny Henriquez RN electronically signed on 08/05/2017 5:13:18 PM with status of Final
[2017-08-05 20:47] LABS: Adenovirus Not Detected (Not Detect); Bordetella Pertussis Not Detected (Not Detect); Chlamydophila pneumoniae Not Detected (Not Detect); Coronavirus 229E Not Detected (Not Detect); Coronavirus HKU1 Not Detected (Not Detect); Coronavirus NL63 Not Detected (Not Detect); Coronavirus OC43 Not Detected (Not Detect); Human Metapneumovirus Not Detected (Not Detect); Human Rhinovirus/Enterovirus Not Detected (Not Detect); Influenza A Subtype 2009 H1 Not Detected (Not Detect); Influenza A Untypeable Not Detected (Not Detect); Influenza B Not Detected (Not Detect); Mycoplasma pneumoniae Not Detected (Not Detect); Parainfluenza Virus 1 Not Detected (Not Detect); Parainfluenza Virus 2 Not Detected (Not Detect); Parainfluenza Virus 3 Not Detected (Not Detect); Parainfluenza Virus 4 Not Detected (Not Detect); Respiratory Syncytial Virus Not Detected (Not Detect)
[2017-08-05] MEDS: SACUBITRIL/VALSARTAN 24/26 MG TABLET PO SCH (23:13)
[2017-08-06] MEDS: Cefepime HCl 2,000 MG in Water for inj. (sterile) 20 ML 20 ML IVP SCH ×3 (00:11→16:24)
[2017-08-06] MEDS: *HR* Enoxaparin 40 MG/0.4 ML SYRINGE SQ SCH (05:34)
[2017-08-06 06:00] LABS: BUN/Creatinine Ratio 19 (6-26); Basophils # 0.1 K/mcL (0.0-0.2); Basophils % 0.8 %; Blood Urea Nitrogen 17 mg/dL (6-20); Calcium 8.8 mg/dL (8.6-10.3); Carbon Dioxide 24 mEq/L (23-29); Chloride 101 mEq/L (98-107); Eosinophils # 0.1 K/mcL (0.0-0.6); Eosinophils % 0.9 %; Glucose 105 mg/dL (70-105); Hematocrit 42.7 % (37.5-50.1); Hemoglobin 14.4 g/dL (12.9-16.9); Immature Granulocytes % 0.3 % (0-4); Lymphocytes # 0.6 K/mcL (0.6-4.6); Lymphocytes % 8.8 %; Mean Corpuscular HGB Conc 33.7 g/dL (31.6-35.5); Mean Corpuscular Hemoglobin 33.1 pg (28.0-33.3); Mean Corpuscular Volume 98.2 fL (83.0-100.0); Mean Platelet Volume 11.5 fL (9.4-12.4); Monocytes # 0.7 K/mcL (0.0-1.3); Monocytes % 10.1 %; Neutrophils # 5.2 K/mcL (1.6-8.9); Osmolality,Calculated 278 (280-300); Platelet Count 173 K/mcL (140-400); Red Blood Count 4.35 M/mcL (4.19-5.50); Red Cell Distribution Width 13.3 % (11.5-14.5); Segmented Neutrophils % 79.1 %; Sodium 133 mEq/L (136-145); eGFR For African Americans > 60 (> 60); eGFR For Non-African Americans > 60 (> 60)
[2017-08-06] MEDS: Furosemide 40 MG/4 ML VIAL IVP SCH (07:59)
[2017-08-06] MEDS: Metoprolol XL (24 HR) Succ 25 MG TAB.ER.24H PO SCH (08:00)
[2017-08-06] MEDS: SACUBITRIL/VALSARTAN 24/26 MG TABLET PO SCH ×2 (08:00→21:54)
[2017-08-06] MEDS: Aspirin 81 MG TAB.CHEW PO SCH (08:00)
[2017-08-06] MEDS: Levofloxacin 500 MG/100 ML 500 MG/100 ML BAG IVPB SCH (08:01)
[2017-08-06] MEDS ORDERED: Metoprolol XL (24 HR) Succ 25 MG TAB.ER.24H PO ONE (09:15)
--- NOTE | 2017-08-06 09:37 | Cardiology Progress Note ---
<Little Hardwick - Last Filed: 08/06/17 09:38> Date of Encounter: 08/06/17 Time of Encounter: 09:35 Assessment and Plan (1) CHF exacerbation Current Visit: Yes Status: Acute Cath completed yesterday with no intervention. medical management and outpatient follow up. Added spironolactone, entresto, high dose statin, corlanor as an outpatient and increased metoprolol. Patient agrees with this plan. Anticipate sign off and outpatient follow up. Qualifiers: Heart failure type: unspecified Qualified Code(s): I50.9 - Heart failure, unspecified Discussion w patient/family: The assessment and plan as outlined above was discussed with the patient and/or family members who expressed understanding and agreement. All questions were answered. Thank you for involving us in the care of your patient. Please call with any questions. Subjective Interval history: Patient states he is feeling better today. Still has a dry cough but otherwise doing well. Denies chest pressure or pain. Denies palpitations. States he does not feel his heart racing as much now but still is tachycardic. Cath done yesterday with no intervention. Medical therapy and outpatient follow up. Patient agrees with this plan. Objective Vital Signs, Last 4 Hours Temp Pulse Resp BP Pulse Ox 08/06/17 08:11 95 08/06/17 07:30 97.5 F L 105 16 113/80 95 General: Conversant, No Apparent Distress HEENT: Atraumatic, Normocephaly, Mucus Membranes Moist Neck: No JVD, Normal carotid pulses Cardiac: Normal S1 and S2, No Murmur, Other (tachycardic, normal rhythm) Lungs: Normal Breath Sounds, No Wheeze, Rales, Rhonchi Neuro: Alert and responsive, No focal deficits noted Abdomen: Soft, Non-Tender Skin: No rashes noted on visualized skin Musculoskeletal: No Chest Wall Tenderness Extremities: No Clubbing, No Cyanosis, No Edema, Normal Pulses Results 08/06/17 05:26 08/06/17 05:26 Lab Results 08/05/17 08/06/17 08/06/17 10:23 05:26 05:26 WBC 6.6 Hgb 14.4 Hct 42.7 Plt Count 173 INR 1.3 Sodium 133 L Potassium 4.0 Chloride 101 Carbon Dioxide 24 BUN 17 Creatinine 0.91 Glucose 105 Calcium 8.8 Magnesium 2.0 Consult Discharge Plan - Plan Referrals: Mat Mueller DO [Primary Care Provider] - 08/12/17 1:30 pm () <Clementine Hernadez - Last Filed: 08/06/17 11:59> Date of Encounter: 08/06/17 Assessment and Plan Discussion w patient/family: I examined this patient and my medical decision-making was reviewed with the Resident Physician. I agree with the documented findings, disposition and treatment plan. Mr. Etienne has no new complaints today. Still with persistent LE edema. LHC demonstrated non-obstructive CAD, essentially a NICM. Recommend another 24h of IV diuresis. Continue asa, high dose statin, BB, entresto and spironolactone. Consider Corlanor as outpatient if heart rates are persistently tachycardic. Cardiac Rehab referral placed. Objective Vital Signs, Last 4 Hours Temp Pulse Resp BP Pulse Ox 08/06/17 11:00 97.5 F L 111 17 102/70 93 08/06/17 08:11 95 Results 08/06/17 05:26 08/06/17 05:26 Lab Results 08/06/17 08/06/17 05:26 05:26 WBC 6.6 Hgb 14.4 Hct 42.7 Plt Count 173 Sodium 133 L Potassium 4.0 Chloride 101 Carbon Dioxide 24 BUN 17 Creatinine 0.91 Glucose 105 Calcium 8.8 Magnesium 2.0
[2017-08-06 10:31] LABS: Chol/HDL Ratio 2.4 (0-4.9); Cholesterol 135 mg/dL (< 200); HDL Cholesterol 56 mg/dL (40-59); LDL Cholesterol,Calculated 63 mg/dL (0-99); Triglycerides 81 mg/dL (< 150)
[2017-08-06] MEDS: Spironolactone 25 MG TABLET PO SCH (10:34)
--- NOTE | 2017-08-06 13:16 | Internal Med Progress Note ---
Date of Encounter: 08/06/17 Time of Encounter: 10:30 - Assessment and plan (1) CHF exacerbation Current Visit: Yes Status: Acute Assessment and plan: His 2 D Echo showed LVEF 15-20%, Severe LV systolic dysfunction Could be non ischemic cardiomyopathy with his underline heavy alcoholic abuse history LHC did not any obstruction Cont IV lasix 40 BID Also added Aldactone 12.5g PO Daily Also pt was started on Entresto and statin Cont BB cont close monitoring electrolytes and cont replacing them Qualifiers: Heart failure type: unspecified Qualified Code(s): I50.9 - Heart failure, unspecified (2) Multifocal pneumonia Current Visit: Yes Status: Acute Assessment and plan: Mostly bacterial Cont empirical abx Levaquin will d/c Cefepime Improving (3) Pleural effusion Current Visit: Yes Status: Acute Assessment and plan: Mostly due to Sysolic CHF Cont Lasix (4) Leg swelling Current Visit: Yes Status: Acute Assessment and plan: Improving (5) Sinus tachycardia Current Visit: Yes Status: Acute Assessment and plan: Mostly due to Pneumonia cont empirical abx Cont Xopenox neb inc Metoprolol to 75mg - Time Spent With Patient Total time spent is greater than 50% in coordination of care (as documented) at patient's floor/unit and/or counseling patient: - Subjective Interval history: Mr. Etienne is a 46 year old male who was previously healthy who presents with 3 day history of swelling in the legs associated with cough, shortness of breath on exertion. Found to have multifocal pneumonia with associated pleural effusion. Also noted bilateral lower extremity edema +1. Pt was admitted here and started him on empirical abx Cefepime and Levaquin. He was also started on IV lasix. Pt denied any CP / SOB. Overall feels better. He did mention heavy alcoholic dependence history quit 3-4 months ago. He noticed more swelling in both legs today. Still has cough with greenish expectoration. - Constitutional Vitals: Temp Pulse Resp BP Pulse Ox 97.5 F L 111 17 102/70 93 08/06/17 11:00 08/06/17 11:00 08/06/17 11:00 08/06/17 11:00 08/06/17 11:00 General appearance: Present: A&O X 3, no acute distress, answers questions appropriately - Head Head exam: Present: atraumatic, normal inspection - Neck Neck exam general surgery: Present: supple - Respiratory Respiratory exam: Present: decreased breath sounds, wheezes. Absent: rales, respiratory distress, rhonchi - Cardiovascular Cardiovascular exam: Present: +S1, +S2, tachycardia. Absent: systolic murmur - GI/Abdominal GI/Abdominal exam: Present: normal bowel sounds, soft. Absent: rebound, rigid, tenderness - Extremities Exam Extremities exam: Present: pedal edema. Absent: calf tenderness, tenderness - Back Exam Back exam: Absent: CVA tenderness (L), CVA tenderness (R) - Neurological Exam Neurological exam: Present: alert, oriented X3 - Psychiatric Psychiatric exam: Present: normal affect, normal mood Internal Medicine: Result - Labs CBC & Chem 7: 08/06/17 05:26 08/06/17 05:26 Labs: Short CBC 08/06/17 Range/Units 05:26 WBC 6.6 (4.3-11.1) K/mcL Hgb 14.4 (12.9-16.9) g/dL Hct 42.7 (37.5-50.1) % Plt Count 173 (140-400) K/mcL Neutrophils # 5.2 (1.6-8.9) K/mcL BMP 08/06/17 05:26 Sodium 133 L Potassium 4.0 Chloride 101 Carbon Dioxide 24 BUN 17 Creatinine 0.91 Glucose 105 Calcium 8.8 - ABG Interpretation ABG results: PT/INR, D-dimer PT 14.4 Seconds (9.4-12.1) H 08/05/17 10:23 Consult Discharge Plan - Plan Referrals: Mat Mueller DO [Primary Care Provider] - 08/12/17 1:30 pm ()
[2017-08-06 15:07] LABS: Mycoplasma pneumoniae IgG 0.17 U/L (<=0.09)
[2017-08-06] MEDS ORDERED: Furosemide 40 MG/4 ML VIAL IVP SCH (21:00)
[2017-08-06] MEDS: Ipratropium/Albuterol Neb 3 ML IH PRN (22:19)
[2017-08-07] MEDS: Cefepime HCl 2,000 MG in Water for inj. (sterile) 20 ML 20 ML IVP SCH ×4 (00:36→23:49)
[2017-08-07 05:11] LABS: BUN/Creatinine Ratio 19 (6-26); Blood Urea Nitrogen 16 mg/dL (6-20); Calcium 8.6 mg/dL (8.6-10.3); Carbon Dioxide 29 mEq/L (23-29); Chloride 102 mEq/L (98-107); Glucose 104 mg/dL (70-105); Magnesium 1.7 mg/dL (1.6-2.6); Osmolality,Calculated 287 (280-300); Potassium 3.2 mEq/L (3.5-5.1); Sodium 138 mEq/L (136-145); eGFR For African Americans > 60 (> 60); eGFR For Non-African Americans > 60 (> 60)
[2017-08-07] MEDS: *HR* Enoxaparin 40 MG/0.4 ML SYRINGE SQ SCH (06:35)
--- NOTE | 2017-08-07 08:11 | Internal Med Progress Note ---
Date of Encounter: 08/07/17 Time of Encounter: 08:08 - Assessment and plan (1) CHF exacerbation Current Visit: Yes Status: Acute Assessment and plan: His 2 D Echo showed LVEF 15-20%, Severe LV systolic dysfunction Could be non ischemic cardiomyopathy with his underline heavy alcoholic abuse history LHC did not show any obstruction Changed IV lasix 20 BID Cont Aldactone 12.5g PO Daily Cont Entresto and statin HR is still in 110's.. so inc Metoprolol xl to 100mg cont close monitoring electrolytes and cont replacing them Qualifiers: Heart failure type: unspecified Qualified Code(s): I50.9 - Heart failure, unspecified (2) Multifocal pneumonia Current Visit: Yes Status: Acute Assessment and plan: Mostly bacterial Cont empirical abx Levaquin # 4/7 Improving (3) Pleural effusion Current Visit: Yes Status: Acute Assessment and plan: Mostly due to Sysolic CHF Cont Lasix (4) Leg swelling Current Visit: Yes Status: Acute Assessment and plan: Improving (5) Sinus tachycardia Current Visit: Yes Status: Acute Assessment and plan: Mostly due to Pneumonia and Systolic CHF exacerbation still not well controlled inc Metoprolol to 100mg - Time Spent With Patient Total time spent is greater than 50% in coordination of care (as documented) at patient's floor/unit and/or counseling patient: - Subjective Interval history: Mr. Etienne is a 46 year old male who was previously healthy who presents with 3 day history of swelling in the legs associated with cough, shortness of breath on exertion. Found to have multifocal pneumonia with associated pleural effusion. Also noted bilateral lower extremity edema +1. Pt was admitted here and started him on empirical abx Cefepime and Levaquin. He was also started on IV lasix. Pt denied any CP / SOB. He did mention heavy alcoholic dependence history quit 3 -4 months ago. Swelling in the legs little better today. Still has cough with greenish expectoration. Overall feels better. - Constitutional Vitals: Temp Pulse Resp BP Pulse Ox 98.6 F 105 17 101/71 96 08/07/17 03:56 08/07/17 03:56 08/07/17 03:56 08/07/17 03:56 08/07/17 03:56 General appearance: Present: A&O X 3, no acute distress, answers questions appropriately - Head Head exam: Present: atraumatic, normal inspection - Neck Neck exam general surgery: Present: supple - Respiratory Respiratory exam: Present: decreased breath sounds, wheezes (mild). Absent: rales, respiratory distress, rhonchi - Cardiovascular Cardiovascular exam: Present: +S1, +S2, tachycardia. Absent: systolic murmur - GI/Abdominal GI/Abdominal exam: Present: normal bowel sounds, soft. Absent: rebound, rigid, tenderness - Extremities Exam Extremities exam: Present: pedal edema (improving). Absent: calf tenderness, tenderness - Back Exam Back exam: Absent: CVA tenderness (L), CVA tenderness (R) - Neurological Exam Neurological exam: Present: alert, oriented X3 - Psychiatric Psychiatric exam: Present: normal affect, normal mood Internal Medicine: Result - Labs CBC & Chem 7: 08/06/17 05:26 08/07/17 04:33 Labs: BMP 08/06/17 08/07/17 05:26 04:33 Sodium 133 L 138 Potassium 4.0 3.2 L Chloride 101 102 Carbon Dioxide 24 29 BUN 17 16 Creatinine 0.91 0.83 Glucose 105 104 Calcium 8.8 8.6 - ABG Interpretation ABG results: PT/INR, D-dimer PT 14.4 Seconds (9.4-12.1) H 08/05/17 10:23 Consult Discharge Plan - Plan Instructions: Heart Failure (GEN) Referrals: Mat Mueller DO [Primary Care Provider] - 08/12/17 1:30 pm ()
[2017-08-07] MEDS: SACUBITRIL/VALSARTAN 24/26 MG TABLET PO SCH ×2 (08:30→20:17)
[2017-08-07] MEDS: Spironolactone 25 MG TABLET PO SCH (08:30)
[2017-08-07] MEDS: Aspirin 81 MG TAB.CHEW PO SCH (08:31)
[2017-08-07] MEDS: levoFLOXacin 500 MG TABLET PO SCH (08:31)
[2017-08-07] MEDS: Furosemide 40 MG/4 ML VIAL IVP SCH ×3 (08:31→20:16)
[2017-08-07] MEDS: Metoprolol XL (24 HR) Succ 50 MG TAB.ER.24H PO SCH (08:31)
[2017-08-07] MEDS ORDERED: Metoprolol XL (24 HR) Succ 25 MG TAB.ER.24H PO SCH (09:00)
[2017-08-07] MEDS: Ipratropium/Albuterol Neb 3 ML IH PRN ×2 (13:37→20:44)
[2017-08-07] MEDS ORDERED: Metoprolol XL (24 HR) Succ 50 MG TAB.ER.24H PO ONE (20:00)
[2017-08-08] MEDS: *HR* Enoxaparin 40 MG/0.4 ML SYRINGE SQ SCH (05:48)
[2017-08-08 07:09] VITALS: BP 105/73
[2017-08-08] MEDS: Furosemide 40 MG/4 ML VIAL IVP SCH (07:24)
[2017-08-08] MEDS: Cefepime HCl 2,000 MG in Water for inj. (sterile) 20 ML 20 ML IVP SCH (07:24)
[2017-08-08] MEDS: Spironolactone 25 MG TABLET PO SCH (07:25)
[2017-08-08] MEDS: SACUBITRIL/VALSARTAN 24/26 MG TABLET PO SCH (07:25)
[2017-08-08] MEDS: Metoprolol XL (24 HR) Succ 50 MG TAB.ER.24H PO SCH (07:25)
[2017-08-08] MEDS: levoFLOXacin 500 MG TABLET PO SCH (07:26)
[2017-08-08] MEDS: Aspirin 81 MG TAB.CHEW PO SCH (07:26)
--- NOTE | 2017-08-08 09:41 | Cardiology Progress Note ---
Date of Encounter: 08/08/17 Time of Encounter: 08:30 Assessment and Plan (1) NICM (nonischemic cardiomyopathy) Current Visit: Yes Status: Acute Biventricular heart failure with nonobstructive CAD by [facility] - etiology possibly secondary to alcohol. LE edema has significantly improved. Patient is net negative 6L and down 5kg in weight. He is asking to go home. Recommend continue BB, entresto, spironolactone. PO maintenance lasix. Continue addition of Corlanor as outpatient if heart rates are persistently tachycardic. Cardiac rehab referral. (2) CAD (coronary artery disease) Current Visit: Yes Status: Acute Nonobstructive CAD by [facility] - continue asa, statin. Qualifiers: Coronary Disease-Associated Artery/Lesion type: [place] artery Associated angina: without angina Qualified Code(s): I25.10 - Atherosclerotic heart disease of [place] coronary artery without angina pectoris Discussion w patient/family: Plan discussed with patient. He will follow up with us in the outpatient setting. Subjective Principal diagnosis: CHF Interval history: Mr. Etienne is feeling good today. Denies SOB, chest pain, palpitations. Objective Vital Signs, Last 4 Hours Temp Pulse Resp BP Pulse Ox 08/08/17 07:06 97.5 F L 107 18 105/73 99 General: Conversant, No Apparent Distress HEENT: Mucus Membranes Moist Neck: No JVD Cardiac: Normal S1 and S2, No Murmur, Other (tachycardic, regular) Lungs: Normal Breath Sounds Neuro: Alert and responsive, No focal deficits noted Abdomen: Soft, Non-Tender, Other (bowel sounds present) Extremities: Other (trivial BLE edema) Results 08/06/17 05:26 08/07/17 04:33 - EKG Interpretation EKG results cardiology: other (telemetry reveals avg HR 111 bpm, no concerning dysrhythmia) Consult Discharge Plan - Plan Instructions: Heart Failure (GEN) Referrals: Mat Mueller DO [Primary Care Provider] - 08/12/17 1:30 pm () Prescriptions: Aspirin 81 mg PO DAILY #30 tab.chew Atorvastatin [Lipitor] 80 mg PO HS #30 tablet Furosemide [Lasix] 20 mg PO BID #60 tablet levoFLOXacin [Levaquin] 500 mg PO DAILY #2 tablet Metoprolol Succinate [Toprol Xl] 100 mg PO DAILY #30 tab.er.24h Potassium Chloride 40 meq PO DAILY #30 tab.er.prt Sacubitril/Valsartan 24/26 mg [Entresto 24 mg-26 mg Tablet] 1 tab PO BID #60 tablet Spironolactone [Aldactone] 12.5 mg PO DAILY #30 tablet
--- NOTE | 2017-08-08 09:46 | Discharge Summary ---
- NOTES TO OUTPATIENT PROVIDER Notes to Outpatient Provider: f/u with Cardiology in 3-5 days. continue taking all the medications prescribed. No driving, no sternuous activity for one week and until you see your [employer] Worker as an out pt Orders not resulted at time of discharge: Pending orders 08/05/17 09:22 CL Cardiac Catheterization [CL] Routine 08/06/17 11:10 Cardiac Orientation [CRS] Routine Cardiac Rehab Phase 2 [CRS] Routine 08/07/17 13:47 EKG [ECG 12 lead ECG] [ECG] Routine 08/07/17 13:54 ECG 12 lead ECG [ECG] Stat Date of Encounter: 08/08/17 Time of Encounter: 09:43 - Discharge Diagnosis (1) CHF exacerbation Priority: Primary Status: Acute Assessment and Plan: His 2 D Echo showed LVEF 15-20%, Severe LV systolic dysfunction Non ischemic cardiomyopathy due to his heavy alcoholic abuse history LHC did not show any obstruction IV lasix 20 BID Cont Aldactone 12.5g PO Daily Cont Entresto and statin Cont BB cont close monitoring electrolytes and cont replacing them Qualifiers: Qualified Code(s): I50.9 - Heart failure, unspecified (2) Multifocal pneumonia Priority: Primary Status: Acute (3) Pleural effusion Priority: Primary Status: Acute (4) Leg swelling Priority: Primary Status: Acute (5) Sinus tachycardia Priority: Secondary Status: Acute Hospital course: Mr. Etienne is a 46 year old male who was previously healthy who presents with 3 day history of swelling in the legs associated with cough, shortness of breath on exertion. Found to have multifocal pneumonia with associated pleural effusion. Also noted bilateral lower extremity edema +1. Pt was admitted here and started him on empirical abx Cefepime and Levaquin. He was also started on IV lasix. His 2 D Echo came back as severe systolic dysfunction qih EF 15-20 %. He went for LHC which showed non obstructive disease. He did mention heavy alcoholic dependence history, quit 3-4 months ago. So his systolic CHF / NICM could be due to alcoholic consumption in the past. He did have sinus tachycardia which slightly better with Metoprolol XL 100mg. Cardiology would like to try Corlanor as an out pt if his HR still elevated when he sees them as an out pt in 3-5 days. Pt denied any CP / SOB. Leg swelling also improved. SO will d/c him home in stable condition today. Time spent discussing smoking cessation with patient: more than 10 minutes ( Spent 45 minutes on this patient's discharge summary due to complex medical problems and patient needed a lot of education regarding discharge instructions ) - Time Spent with Patient Total time spent providing and/or coordinating discharge services: - Discharge Medications Prescriptions: Aspirin 81 mg PO DAILY #30 tab.chew Atorvastatin [Lipitor] 80 mg PO HS #30 tablet Furosemide [Lasix] 20 mg PO BID #60 tablet levoFLOXacin [Levaquin] 500 mg PO DAILY #2 tablet Metoprolol Succinate [Toprol Xl] 100 mg PO DAILY #30 tab.er.24h Potassium Chloride 40 meq PO DAILY #30 tab.er.prt Sacubitril/Valsartan 24/26 mg [Entresto 24 mg-26 mg Tablet] 1 tab PO BID #60 tablet Spironolactone [Aldactone] 12.5 mg PO DAILY #30 tablet Home Medications: Aspirin 81 mg PO DAILY #30 tab.chew 08/08/17 [Rx] Atorvastatin [Lipitor] 80 mg PO HS #30 tablet 08/08/17 [Rx] Furosemide [Lasix] 20 mg PO BID #60 tablet 08/08/17 [Rx] Metoprolol Succinate [Toprol Xl] 100 mg PO DAILY #30 tab.er.24h 08/08/17 [Rx] Potassium Chloride 40 meq PO DAILY #30 tab.er.prt 08/08/17 [Rx] Sacubitril/Valsartan 24/26 mg [Entresto 24 mg-26 mg Tablet] 1 tab PO BID #60 tablet 08/08/17 [Rx] Spironolactone [Aldactone] 12.5 mg PO DAILY #30 tablet 08/08/17 [Rx] levoFLOXacin [Levaquin] 500 mg PO DAILY #2 tablet 08/08/17 [Rx] Allergies/Adverse Reactions: 3 Allergy/AdvReac Type Severity Reaction Status Date / Time No Known Allergies Allergy Verified 08/03/17 08:44 Date of admission: 08/03/17 15:26 Primary care physician: Mat Mueller, - Constitutional Vitals: Temp Pulse Resp BP Pulse Ox 97.5 F L 107 18 105/73 99 08/08/17 07:06 08/08/17 07:06 08/08/17 07:06 08/08/17 07:06 08/08/17 07:06 General appearance: Present: A&O X 3, no acute distress, answers questions appropriately - Head Head exam: Present: atraumatic, normal inspection - Neck Neck exam general surgery: Present: supple - Respiratory Respiratory exam: Present: decreased breath sounds. Absent: rales, respiratory distress, rhonchi, wheezes - Cardiovascular Cardiovascular exam: Present: RRR, +S1, +S2. Absent: systolic murmur - GI/Abdominal GI/Abdominal exam: Present: normal bowel sounds, soft. Absent: rebound, rigid, tenderness - Extremities Exam Extremities exam: Present: pedal edema (trace). Absent: calf tenderness, tenderness - Back Exam Back exam: Absent: CVA tenderness (L), CVA tenderness (R) - Neurological Exam Neurological exam: Present: alert, oriented X3 - Psychiatric Psychiatric exam: Present: normal affect, normal mood - Patient Status Disposition: Home, Self-Care Condition: Good Overall status at discharge: patient is back to baseline - Discharge Instructions Instructions: Heart Failure (GEN) Follow Up With: Mat Mueller DO [Primary Care Provider] - 08/12/17 1:30 pm () Clementine Hernadez DO [Partnered Physician] - Forms: ED Satisfaction Letter - Diet and Activity Activity: increase activity as tolerated, return to work once cleared by your PCP/specialist Diet: low salt diet
[2017-08-09] MEDS ORDERED: Furosemide 40 MG TABLET PO SCH (09:00)
--- NOTE | 2017-08-10 16:10 | Electrocardiograph Report ---
[place] [id number] Test Date: 2017-08-07 Pat Name: Osito Etienne Department: 112 Room: 2A13 Gender: M Public Relations Consultant: : 1970 Requested By: Leigh Coleman Order Number: [id number] Reading MD: Jovany Ansari Measurements Intervals [place] Rate: 110 P: 32 IL: 151 QRS: -11 QRSD: 91 T: 183 QT: 342 QTc: 407 Interpretive Statements SINUS TACHYCARDIA MODERATE T-WAVE ABNORMALITY, CONSIDER ANTEROLATERAL ISCHEMIA Electronically Signed On 08-10-2017 16:08:15 EDT by Jovany Ansari
== END 2017-08-08 15:00 | disposition home or self-care (01) | DRG 286 ==
LOC: EMEROO 13:13 → SUATTDRO 15:26 → 2ANU 15:26
PROVIDERS: ADMIT Internal Medicine; ATTEND Family Medicine